=== PATIENT | male | born 1965 | race Caucasian/White ===

== ENCOUNTER 2017-03-07 05:42 | Outpatient (CLI) | payer BC ==
[~2017-03-07] VITALS: Ht 180.3 cm; Wt 88.5 kg
== END 2017-03-07 13:55 ==
LOC: PREOP 05:42
PROVIDERS: ATTEND Surgery
DX: Z01.818 Encounter for other preprocedural examination (principal); Z12.11 Encounter for screening for malignant neoplasm of colon

== ENCOUNTER 2017-03-11 06:47 | Day surgery (SDC) | payer BC ==
[~2017-03-11] VITALS: Ht 180.3 cm; Wt 88.5 kg
[2017-03-11] MEDS ORDERED: FLUMAZENIL (ROMAZICON) 0.1 MG/ML 5 ML VIAL INJ PRN (07:00)
[2017-03-11] MEDS ORDERED: NALOXONE 0.4 MG/ML 1 ML (NARCAN) VIAL IVP PRN (07:00)
[2017-03-11] MEDS ORDERED: NS IV 500 ML 500 ML IV SCH (07:00)
[2017-03-11] MEDS ORDERED: NS IV 500 ML 500 ML ONE (07:08)
[2017-03-11] MEDS ORDERED: MIDAZOLAM 2 MG/2 ML (VERSED) VIAL ONE (07:17)
[2017-03-11 07:23] VITALS: BP 129/76
[2017-03-11] MEDS: fentaNYL INJECTION 100 MCG/2 ML AMP IVP PRN ×2 (08:27→08:35)
[2017-03-11] MEDS: MIDAZOLAM 2 MG/2 ML (VERSED) VIAL IVP PRN ×3 (08:30→08:37)
--- NOTE | 2017-03-11 08:48 | Conscious Sedation/ASA ---
Conscious Sedation Pre-Proced Time Reviewed: 08:14 ASA Class: 1 Airway Mallampati Classification: (ely shoshone appropriate class) I. II. III, IV Lungs Heart ASA score ASA 1: a normal healthy patient ASA 2: a patient with a mild systemic disease (mid diabetes, controlled hypertension, obesity ASA 3: a patient with a severe systemic disease that limits activity (angina , COPD, prior Myocardial infarction) ASA 4: a patient with an incapacitating disease that is a constant threat to life (CHF, renal failure) ASA 5: a moribund patient not expected to survive 24 hrs. (ruptured aneurysm) ASA 6: a declared brain patient whose organs are being harvested. For emergent operations, add the letter E after the classification Grade 1 Sedation Plan: Discussed options with patient/fam Note The patient is an appropriate candidate to undergo the planned procedure, sedation, and anesthesia. The patient immediately re-assessed prior to indication. NEWTON BEACH MD Mar 11, 2017 8:48 am
--- NOTE | 2017-03-11 08:49 | Endoscopy Procedure Report ---
Endoscopy Report Date: Mar 11, 2017 Preoperative Diagnosis: screening Study Performed: Colonoscopy Procedure Instrument: Colonoscope Endo Procedure/Findings Findings 1.: Normal Recommendations: Recommendations: 1.: Colonscopy in 10 years Copy Copies To 1: ITALO RONQUILLO MD, XAVIER M MD Mar 11, 2017 8:48 am
--- NOTE | 2017-03-11 08:49 | Discharge Inst-Simple/Standard ---
Discharge Inst-Standard Discharge Medications New, Converted or Re-Newed RX: Other Patient Instructions/Follow Up Plan of Care/Instructions/FU: repeat colonoscopy in 10 years Activity as Tolerated: Yes Discharge Diet: No Restrictions NEWTON BEACH MD Mar 11, 2017 8:49 am
[2017-03-11 08:50] VITALS: BP 114/68
[2017-03-11 09:20] VITALS: BP 118/76
[2017-03-11 09:35] VITALS: BP 118/76
--- NOTE | 2017-03-11 10:49 | OPERATIVE REPORT ---
DATE OF SERVICE: 03/11/2017 PROCEDURE: Screening colonoscopy. SURGEON: Newton Beach MD INDICATION FOR PROCEDURE: This gentleman came in for screening colonoscopy. He denied any family history of colon cancer or polyps. Informed consent was obtained after reviewing the procedure in detail. DESCRIPTION OF PROCEDURE: He was placed in left lateral decubitus position and his vital signs were monitored. Conscious sedation was achieved using Versed and fentanyl. Digital rectal examination was unremarkable. The colonoscope was then introduced into the rectum and advanced all the way up to the cecum. The scope was then withdrawn slowly and the mucosa examined in a systematic fashion. The quality of bowel preparation was excellent. There was no abnormality. He tolerated the procedure well and was taken back to the nursing area in a stable condition. IMPRESSION: Normal screening colonoscopy. No family history. Recommend repeating in ten years. Job ID: [id number] DocumentID: [id number] Dictated Date: 03/11/2017 08:45:30 Raise Driller Date: 03/11/2017 09:12:18 Dictated By: NEWTON BEACH MD MTDD
== END 2017-03-11 09:35 | disposition home or self-care (01) ==
LOC: ENDO 06:47
PROVIDERS: ATTEND Surgery
DX: Z12.11 Encounter for screening for malignant neoplasm of colon (principal)

== ENCOUNTER → 2019-06-19 | Outpatient (CLI) | payer BC ==
--- NOTE | 2019-06-19 15:11 | Diagnostic Imaging Report ---
INDICATION: Low back pain. Time of exam 2:50 p.m. FINDINGS: Three views of the lumbar spine were obtained. Curvature and alignment is normal. Vertebral body heights are well maintained. No acute compression fracture is seen. There is some degenerative disc disease at L5-S1 level with disc space narrowing and marginal spurring. IMPRESSION: Lower lumbar spondylosis. No acute bony abnormality is detected. Dictated by: Dictated on workstation # [id number]
== END ==
LOC: RAD 14:22
PROVIDERS: ATTEND Nurse Practitioner Family
DX: M47.816 Spondylosis without myelopathy or radiculopathy, lumbar region (principal)
CPT/HCPCS: 72100

== ENCOUNTER → 2019-07-10 | Outpatient (CLI) | payer BC ==
--- NOTE | 2019-07-10 17:59 | Diagnostic Imaging Report ---
PROCEDURE: MRI lumbar spine. TECHNIQUE: Multiplanar, multisequence MRI of the lumbar spine was performed without contrast. DATE: July 10, 2019. COMPARISON: Lumbar spine radiographs, June 19, 2019. INDICATION: 53-year-old male, low back pain. FINDINGS: There is mild grade 1 retrolisthesis of L5 on S1. There is no evidence of a diffuse marrow infiltrating or replacing process. There is no identified compression deformity or fracture. There is a superior endplate Schmorl's node of T12. The visualized cord and conus medullaris is unremarkable and terminates at the L1-L2 level. There is severe disc height loss at L5-S1. L1-L2: There is mild diffuse disc bulge. The facet joints and ligamentum flavum are unremarkable. There is no foraminal narrowing. There is no spinal canal stenosis. L2-L3: There is no disc bulge. The facet joints and ligamentum flavum are unremarkable. There is no foraminal narrowing. There is no spinal canal stenosis. L3-L4: There is no disc bulge. The facet joints and ligamentum flavum are unremarkable. There is no high-grade foraminal narrowing. There is no spinal canal stenosis. L4-L5: There is diffuse disc bulge is superimposed right paracentral disc extrusion which extends below the superior endplate of L5 by 12 mm. This measures 9 mm in anterior to posterior dimension and 11 mm in transverse dimension. There is direct contact of the descending right L5 nerve root and severe narrowing of the right lateral recess. There is also moderate narrowing of the left lateral recess at this level. The facet joints and ligamentum flavum are grossly unremarkable. There is moderate right and mild left foraminal narrowing. There is moderate spinal canal stenosis. L5-S1: There is a diffuse disc bulge. There are right-sided laminotomy changes. There is mild right greater than left foraminal narrowing. There is no spinal canal stenosis. IMPRESSION: 1. L4-L5 diffuse disc bulge with superimposed sizable right paracentral disc extrusion contacting the descending right L5 nerve root and causing severe narrowing of the right lateral recess. There is moderate narrowing of the left lateral recess at this level as well as moderate right and mild left foraminal narrowing and moderate spinal stenosis. 2. Diffuse disc bulge at L5-S1 with mild right greater than left foraminal narrowing at this level. Dictated by: Dictated on workstation # [id number]
== END ==
LOC: RAD 14:42
PROVIDERS: ATTEND Nurse Practitioner Family
DX: M51.27 Other intervertebral disc displacement, lumbosacral region (principal); M48.061 Spinal stenosis, lumbar region without neurogenic claudication
CPT/HCPCS: 72148

== ENCOUNTER → 2022-11-13 | Outpatient (CLI) | payer BC ==
[~2022-11-13] MED LIST: GADOTERATE 0.5 MMOL/ML (CLARISCAN) 20 ML VIAL IV ONE
--- NOTE | 2022-11-13 17:40 | Diagnostic Imaging Report ---
CLINICAL INDICATION: Patient has history of lumbar spine surgery in the . Patient states he has had increased low back pain. EXAM: MRI of the lumbar spine performed without IV contrast. Sequences include sagittal T2, sagittal T1, sagittal T2 fat-sat, axial T2, axial T1, sagittal T1 fat-sat post IV contrast, and axial T1 post IV contrast. COMPARISON: MRI of the lumbar spine without contrast dated 07/10/2019. FINDINGS: There is no acute lumbar spine fracture or dislocation. There are Modic type I degenerative signal changes involving the T12-L2 endplates and L4-S1 endplates. There is Modic type II degenerative signal changes involving the T12-L1 level and L5-S1 levels. There are hypertrophic spurs involving the lumbar spine and multilevel lumbar spine facet arthropathy. There is no significant paraspinal soft tissue abnormality. The visualized portions of the distal thoracic spinal cord, conus medullaris, and cauda equina nerve roots are unremarkable. The conus medullaris tip is seen at the lower L1 vertebral body level. There is no significant paraspinal soft tissue abnormality. There are chronic Schmorl's nodes involving the upper aspect of the T12 vertebra. There is intraosseous hemangioma within the T12 vertebra. T12-L1: There is no significant central canal or neural foramen narrowing. L1-L2: There is a stable mild diffuse disk bulge. There is mild bilateral facet arthropathy. There is no significant central spinal canal or neural foramen narrowing. L2-L3: There is no significant central spinal canal or neural foramen narrowing. L3-L4: There is mild diffuse disk bulge with slight increased size of the posterior disk herniation component with interval development of an annular tear. There is minimal impression upon the thecal sac anteriorly which has progressed. Stable mild right neural foramen narrowing and no significant left neural foramen narrowing. L4-L5: There is a diffuse disk bulge with a moderate to large sized posterior/left paracentral disk extrusion/herniation. Patient previously had a right paracentral disk herniation with caudal disk migration which is not seen on this exam. The overall size of the disk herniation has increased in interim. There is moderate loss of disk space height which has progressed. There is severe central canal stenosis which has progressed. There is moderate bilateral facet arthropathy. There is moderate right neural foramen narrowing and no significant left neural foramen narrowing. L5-S1: There is diffuse disk bulge with severe loss of disk space height. There are disk spurs extending into the foraminal regions bilaterally and posteriorly. There is mild to moderate bilateral facet arthropathy. There is moderate right neural foramen narrowing and mild left neural foramen narrowing. There is no significant central canal stenosis. IMPRESSION: 1: There is multilevel lumbar spine degenerative disk disease which is worse at the L4-L5 level. These findings are described above. 2: There is interval progression of L4-L5 diffuse disk bulge with moderate to large sized posterior left paracentral disk extrusion/herniation. There is now severe central canal stenosis which has progressed. Dictated by: Dictated on workstation # [id number]
== END ==
LOC: RAD 15:30
PROVIDERS: ATTEND Family Medicine
DX: M51.37 Other intervertebral disc degeneration, lumbosacral region (principal); M51.27 Other intervertebral disc displacement, lumbosacral region; M48.061 Spinal stenosis, lumbar region without neurogenic claudication; M47.817 Spondylosis without myelopathy or radiculopathy, lumbosacral region; Z98.890 Other specified postprocedural states
CPT/HCPCS: 72158